=== PATIENT | female | born 1950 | race Caucasian/White ===

== ENCOUNTER → 2017-06-27 | Outpatient (CLI) | payer MEDICARE, OTHER ==
[~2017-06-27] MED LIST: APAP/OXYCODONE1 TA1 PO; HYDROCODONE-APA1 TA1 PO; LEVOTHYROXINE0.15 MG PO; LOVENOX 3030 MG/0.3 SC; METOPROLOL SUC100 M1 PO; METOPROLOL100 MG PO; PROTONIX 40MG T40 MG PO
--- NOTE | 2017-06-28 09:07 | RADIOLOGY REPORT PS360 ---
MRI-C-SPINE W/O, MRI-3D RENDERING/MYELOGRAM HISTORY: Neck pain with right-sided neck pain and right shoulder pain CERVICALGIA ORDERING PHYSICIAN: Veronica Costa APRN PATIENT AGE: 66 years COMPARISON: None TECHNIQUE: Standard multiplanar multiecho sequences are performed without contrast. 3-D MIP and myelographic images are also rendered and reviewed FINDINGS: There is normal alignment. The craniocervical junction has an unremarkable appearance. C2-C3 and C3-C4 have an unremarkable appearance. C4-C5: 2 mm anterolisthesis of C4 with slight decrease in the disc space suggesting mild degenerative disc disease. C5-C6: Mild degenerative disc disease with minimal bulging disc eccentric towards the right abutting the cord without cord displacement or effacement C6-C7: Mild degenerative disc disease. Minimal broad-based central disc protrusion slightly eccentric toward the left without cord displacement or effacement C7-T1: Unremarkable. Small T1 and T2 hyperintensity at T1 consistent with a small lipoma. A complex nodule present in the right and posterior aspect of the parotid gland measuring up to 2 x 1.2 cm IMPRESSION: 1. Mild cervical spondylosis with degenerative disc disease. 2. Mild degenerative disc disease at C5-C6 with minimal bulging disc eccentric towards the right abutting the cord without cord displacement or effacement 3. Mild degenerative disc disease at C6-C7 with minimal broad-based central disc protrusion slightly eccentric toward the left without cord displacement or effacement 4. 2 cm nodular opacity of the right parotid gland. Further evaluation could be obtained with CT without contrast the clinically warranted
== END ==
LOC: RAD 12:54
DX: M54.2 Cervicalgia (principal)